=== PATIENT | male | born 1940 | race Caucasian/White ===

== ENCOUNTER 2018-05-02 11:11 | Outpatient (CLI) | payer MEDICARE, OTHER ==
[2018-05-02 12:46] LABS: Hemoglobin 15.5 g/dL (14.0-18.0); Mean Corpuscular HGB CONC 33.1 g/dL (32.0-36.0); Mean Corpuscular Hemoglobin 32.1 pg (27.0-31.0); Mean Corpuscular Volume 97.2 fL (78.0-98.0); Mean Platelet Volume 8.4 fL (7.4-10.4); Platelet Count 202 thou/uL (130-400); RBC Distribution Width 11.3 % (11.5-14.5); Red Blood Cell (RBC) Count 4.84 mill/uL (4.70-6.10); White Blood Cell (WBC) Count 6.2 thou/uL (4.8-10.8)
[2018-05-02 13:06] LABS: Anion Gap 10 mmol/L (10-20); BUN (Urea Nitrogen) 19 mg/dL (8.4-25.7); Calc. Creatinine Clearance 0 mL/min (70-130); Calcium 9.4 mg/dL (7.8-10.44); Carbon Dioxide 29 mmol/L (23-31); Chloride 102 mmol/L (98-107); Estimated GFR-MDRD 69; Glucose 160 mg/dL (83-110); Potassium 4.1 mmol/L (3.5-5.1); Sodium 137 mmol/L (136-145)
--- NOTE | 2018-05-03 10:12 | EKG ---
Test Reason : Blood Pressure : / mmHG Vent. Rate : 059 BPM Atrial Rate : 059 BPM P-R Int : 212 ms QRS Dur : 094 ms QT Int : 410 ms P-R-T Axes : 045 025 103 degrees QTc Int : 405 ms Sinus bradycardia with 1st degree A-V block Nonspecific T wave abnormality Abnormal ECG Confirmed by MARCE CATHERINE ([id number]) on 05/03/2018 10:12:29 AM Referred By: BRADEN Confirmed By:MARCE CATHERINE
== END 2018-05-02 11:12 | disposition home or self-care (01) ==
LOC: LABBT 11:11
PROVIDERS: ATTEND Orthopaedic Surgery
DX: Z01.818 Encounter for other preprocedural examination (principal); M65.341 Trigger finger, right ring finger
CPT/HCPCS: 80048; 85027; 93005; 93010

== ENCOUNTER → 2018-05-04 | Day surgery (SDC) | payer MEDICARE, OTHER ==
[2018-05-02 11:32] VITALS: BMI 28.2
[~2018-05-04] MED LIST: CEFAZOLIN 2 GM/50 ML BAG ONE; Fentanyl 100 MCG/2 ML VIAL ONE; Lidocaine 1% (PF) 30 ML VIAL ONE; Lidocaine 1% w/Epinephrine 1:200K 30 ML VIAL ONE; PROPOFOL 200 MG/20 ML VIAL ONE
--- NOTE | 2018-05-04 10:56 | OP ---
DATE OF PROCEDURE: 05/04/2018 PREOPERATIVE DIAGNOSIS: Right ring finger trigger finger. POSTOPERATIVE DIAGNOSIS: Right ring finger trigger finger. PROCEDURE PERFORMED: Right open trigger finger release. STAFF: Noel Gomez M.D. ANESTHESIA: Calin Phipps. Patient received TIVA with 10 mL of 1% lidocaine with epinephrine. ESTIMATED BLOOD LOSS: 10 mL. TOURNIQUET TIME: 8 minutes, 250 mmHg. ANTIBIOTICS: Ancef 2 grams. COMPLICATIONS: None. HISTORY OF PRESENT ILLNESS: Mr. Munoz is a 77-year-old male who presented to me with catching in hi s ring finger, especially bad at night. Pain 2/10. Previous injection gave him a month of relief. The patient desired to have his right ring finger released. I discussed with him the risks and benef its of surgery to include pain, scar, bleeding, infection, damage to vital structures, failure of rel ease, continued pain despite surgical intervention, loss of life or limb. The patient understood the risks and benefits and elected to proceed. PROCEDURE IN DETAIL: Timeout was performed designating the patient's right upper extremity as the op erative site based on site, consents and markings. After timeout, the patient's right hand was prepp ed and draped in sterile fashion. He received TIVA injected proximally and along the patient's ray t o help with his digital nerves, as well as the arch. I made an incision in the flexure crease, came down the A1 kavin. I used a knife to dissect and cut it and scissors to release it distally. I pul led the tendons up, I felt a little pop at completion of the release, still pulled the tendons up thr ough the wound. I felt like I had a complete release proximally and distally of the kavin. We then washed. We closed with mattress stitches of 3-0 nylon, injected the remnant with 4 mL of 1% lidocai ne with epinephrine for a total of 10 mL in the hand. I then placed a soft tissue dressing. The patient will begin range of motion, put a Band-Aid over the incision. He will follow up me in [facility] in about 10-12 days.
== END ==
LOC: SDC 06:49
PROVIDERS: ATTEND Orthopaedic Surgery
PROC: 0LN70ZZ Release Right Hand Tendon, Open Approach (ICD-10-PCS; principal; 2018-05-04)
DX: M65.341 Trigger finger, right ring finger (principal); I10 Essential (primary) hypertension; E78.00 Pure hypercholesterolemia, unspecified; I25.10 Atherosclerotic heart disease of native coronary artery without angina pectoris; Z86.12 Personal history of poliomyelitis; Z79.82 Long term (current) use of aspirin; Z79.899 Other long term (current) drug therapy; Z95.1 Presence of aortocoronary bypass graft; Z96.652 Presence of left artificial knee joint
CPT/HCPCS: J2001; J2704; J3010

== ENCOUNTER 2021-04-07 21:21 | Emergency (ER) | payer MEDICARE ==
[2021-04-07 22:09] LABS: #Basophils 0.1 thou/uL (0.0-0.2); #Eosinphils 0.2 thou/uL (0.0-0.7); #Lymphocytes 2.1 thou/uL (1.20-3.40); #Monocytes 0.7 thou/uL (0.11-0.59); #Neutrophils 7.4 thou/uL (1.40-6.50); %Basophils 0.6 % (0.0-1.0); %Eosinophils 1.9 % (0.0-10.0); %Lymphocytes 19.8 % (21.0-51.0); %Monocytes 6.9 % (0.0-10.0); %Neutrophils 70.9 % (42.0-75.0); Hemoglobin 16.5 g/dL (14.0-18.0); Mean Corpuscular HGB CONC 33.4 g/dL (32.0-36.0); Mean Corpuscular Hemoglobin 33.2 pg (27.0-31.0); Mean Corpuscular Volume 99.4 fL (78.0-98.0); Mean Platelet Volume 8.6 fL (7.4-10.4); Platelet Count 228 thou/uL (130-400); RBC Distribution Width 11.6 % (11.5-14.5); Red Blood Cell (RBC) Count 4.97 mill/uL (4.70-6.10); White Blood Cell (WBC) Count 10.5 thou/uL (4.8-10.8)
[2021-04-07 22:30] LABS: ALT (SGPT) 22 U/L (8-55); AST (SGOT) 18 U/L (5-34); Albumin 4.5 g/dL (3.4-4.8); Alkaline Phosphatase 83 U/L (40-110); Anion Gap 12 mmol/L (10-20); BUN (Urea Nitrogen) 13 mg/dL (8.4-25.7); Bilirubin, Total 0.6 mg/dL (0.2-1.2); CK (CPK) 61 U/L (30-200); Calc. Creatinine Clearance 0 mL/min (70-130); Calcium 10.1 mg/dL (7.8-10.44); Carbon Dioxide 31 mmol/L (23-31); Chloride 99 mmol/L (98-107); Globulin 3.5 g/dL (2.4-3.5); Glucose 155 mg/dL (83-110); Potassium 4.2 mmol/L (3.5-5.1); Sodium 138 mmol/L (136-145)
== END 2021-04-07 23:14 | disposition home or self-care (01) ==
LOC: ERS 21:21
DX: K21.9 Gastro-esophageal reflux disease without esophagitis (principal); I10 Essential (primary) hypertension; E11.9 Type 2 diabetes mellitus without complications; E78.5 Hyperlipidemia, unspecified; E78.00 Pure hypercholesterolemia, unspecified; Z79.82 Long term (current) use of aspirin; Z79.899 Other long term (current) drug therapy
CPT/HCPCS: 71045; 80053; 82550; 84484; 85025; 93005

== ENCOUNTER 2021-07-18 13:56 | Inpatient (IN) | payer OTHER, MEDICARE ==
[2021-07-18] MEDS ORDERED: Metoclopramide HCl 10 MG/2 ML VIAL ONE (14:22)
[2021-07-18] MEDS ORDERED: Ondansetron PF 4 MG/2 ML Vial IVP PRN ×2 (15:10→16:07)
[2021-07-18] MEDS ORDERED: Ondansetron ODT 4 MG TAB SL PRN (15:10)
[2021-07-18 15:17] LABS: #Eosinphils 0.1 thou/uL (0.0-0.7); #Lymphocytes 2.4 thou/uL (1.20-3.40); #Monocytes 0.7 thou/uL (0.11-0.59); #Neutrophils 9.3 thou/uL (1.40-6.50); %Basophils 0.3 % (0.0-1.0); %Eosinophils 0.9 % (0.0-10.0); %Lymphocytes 19.2 % (21.0-51.0); %Monocytes 5.7 % (0.0-10.0); %Neutrophils 73.9 % (42.0-75.0); Hemoglobin 14.9 g/dL (14.0-18.0); Mean Corpuscular HGB CONC 34.5 g/dL (32.0-36.0); Mean Corpuscular Hemoglobin 34.4 pg (27.0-31.0); Mean Corpuscular Volume 99.8 fL (78.0-98.0); Mean Platelet Volume 8.1 fL (7.4-10.4); Platelet Count 226 thou/uL (130-400); RBC Distribution Width 11.1 % (11.5-14.5); Red Blood Cell (RBC) Count 4.33 mill/uL (4.70-6.10); White Blood Cell (WBC) Count 12.6 thou/uL (4.8-10.8)
[2021-07-18 15:32] LABS: PTT 28.5 sec (22.9-36.1); Prothrombin Time 13.5 sec (12.0-14.7)
[2021-07-18 15:38] LABS: ALT (SGPT) 22 U/L (8-55); AST (SGOT) 18 U/L (5-34); Alkaline Phosphatase 74 U/L (40-110); Anion Gap 16 mmol/L (10-20); BUN (Urea Nitrogen) 16 mg/dL (8.4-25.7); Bilirubin, Total 0.7 mg/dL (0.2-1.2); Calc. Creatinine Clearance 0 mL/min (70-130); Calcium 9.2 mg/dL (7.8-10.44); Carbon Dioxide 24 mmol/L (23-31); Chloride 102 mmol/L (98-107); Globulin 3.3 g/dL (2.4-3.5); Glucose 218 mg/dL (83-110); Potassium 3.2 mmol/L (3.5-5.1); Protein, Total 7.3 g/dL (5.8-8.1); Sodium 139 mmol/L (136-145)
[2021-07-18] MEDS ORDERED: Ketorolac Tromethamine 30 MG/ML VIAL ONE (15:39)
[2021-07-18] MEDS ORDERED: Morphine 4 MG/ML VIAL ONE (15:39)
[2021-07-18] MEDS ORDERED: Dextrose 50% Abboject 50 ML SYRINGE SLOW IVP PRN (16:07)
[2021-07-18] MEDS ORDERED: Morphine 4 MG/ML VIAL SLOW IVP PRN ×2 (16:07→17:31)
[2021-07-18] MEDS ORDERED: Dextrose 5% in Water 1,000 ML IV PRN (16:07)
[2021-07-18] MEDS ORDERED: traMADol HCl 50 MG TAB PO PRN ×2 (16:13→19:45)
[2021-07-18] MEDS ORDERED: Acetaminophen 500 MG TAB PO SCH (16:15)
[2021-07-18 16:32] LABS: Magnesium 1.8 mg/dL (1.6-2.6); Phosphorus 2.4 mg/dL (2.3-4.7)
[2021-07-18 16:38] LABS: SARS-CoV-2 NAA Rapid Test Not Detected (NotDetected)
[2021-07-18] MEDS ORDERED: Magnesium Sulfate 2 GM in Sodium Chloride 0.9% 100 ML IVPB SCH (17:00)
[2021-07-18] MEDS ORDERED: Potassium Phosphate 30 MMOL, Magnesium Sulfate 2 GM in Sodium Chloride 0.9% 250 ML IVPB SCH (18:00)
[2021-07-18 18:18] VITALS: BMI 27.3
[2021-07-18] MEDS: Senokot S 8.6-50 MG TAB PO SCH (21:43)
[2021-07-18] MEDS: Famotidine 20 MG TAB PO SCH (21:43)
[2021-07-18] MEDS: Ketorolac Tromethamine 30 MG/ML VIAL IVP SCH (21:44)
[2021-07-18] MEDS: traMADol HCl 50 MG TAB PO SCH (21:44)
[2021-07-18] MEDS: Insulin Regular 300 UNITS/3 ML VIAL SC PRN (22:09)
[2021-07-18] MEDS ORDERED: Sodium Chloride 0.9% 1,000 ML IV SCH (23:00)
[2021-07-18] MEDS: Cyclobenzaprine 10 MG TAB PO PRN (23:18)
[2021-07-18] MEDS: Acetaminophen 500 MG TAB PO SCH (23:19)
[2021-07-18] MEDS: Morphine 4 MG/ML VIAL SLOW IVP PRN (23:20)
[2021-07-19] MEDS: hydrALAZINE 20 MG/ML VIAL SLOW IVP PRN ×2 (00:38→03:27)
[2021-07-19] MEDS ORDERED: ceFAZolin 2 GM/Dextrose 50 ML 2 GM in Premix Bag 1 BAG IVPB SCH (03:00)
[2021-07-19] MEDS: Morphine 4 MG/ML VIAL SLOW IVP PRN (03:19)
[2021-07-19] MEDS: Acetaminophen 500 MG TAB PO SCH ×3 (05:42→18:28)
[2021-07-19] MEDS: traMADol HCl 50 MG TAB PO SCH ×4 (05:43→21:03)
[2021-07-19] MEDS: Ketorolac Tromethamine 30 MG/ML VIAL IVP SCH ×4 (05:45→21:04)
[2021-07-19 07:25] LABS: #Eosinphils 0.1 thou/uL (0.0-0.7); #Lymphocytes 1.1 thou/uL (1.20-3.40); #Neutrophils 9.3 thou/uL (1.40-6.50); %Basophils 0.1 % (0.0-1.0); %Eosinophils 0.6 % (0.0-10.0); %Lymphocytes 9.8 % (21.0-51.0); %Monocytes 8.9 % (0.0-10.0); %Neutrophils 80.6 % (42.0-75.0); Hemoglobin 15.2 g/dL (14.0-18.0); Mean Corpuscular HGB CONC 34.1 g/dL (32.0-36.0); Mean Corpuscular Hemoglobin 33.6 pg (27.0-31.0); Mean Corpuscular Volume 98.5 fL (78.0-98.0); Mean Platelet Volume 8.4 fL (7.4-10.4); Platelet Count 201 thou/uL (130-400); RBC Distribution Width 11.2 % (11.5-14.5); Red Blood Cell (RBC) Count 4.54 mill/uL (4.70-6.10); White Blood Cell (WBC) Count 11.6 thou/uL (4.8-10.8)
[2021-07-19 07:40] LABS: Anion Gap 17 mmol/L (10-20); BUN (Urea Nitrogen) 15 mg/dL (8.4-25.7); Calc. Creatinine Clearance 103 mL/min (70-130); Calcium 8.9 mg/dL (7.8-10.44); Carbon Dioxide 23 mmol/L (23-31); Chloride 101 mmol/L (98-107); Glucose 176 mg/dL (83-110); Magnesium 2.2 mg/dL (1.6-2.6); Potassium 3.8 mmol/L (3.5-5.1); Sodium 137 mmol/L (136-145)
[2021-07-19 07:41] LABS: Phosphorus 3.2 mg/dL (2.3-4.7)
[2021-07-19] MEDS: Carvedilol 3.125 MG TAB PO SCH (09:00)
[2021-07-19] MEDS: Senokot S 8.6-50 MG TAB PO SCH ×2 (10:03→21:04)
[2021-07-19] MEDS: Polyethylene Glycol 3350 17 GM Packet PO SCH (10:03)
[2021-07-19] MEDS: Famotidine 20 MG TAB PO SCH ×2 (10:03→21:04)
[2021-07-19] MEDS ORDERED: Neomycin-Polymyxin 1 ML AMP ONE (10:27)
[2021-07-19] MEDS ORDERED: Dexmedetomidine 200 MCG/2 ML VIAL ONE (10:28)
[2021-07-19] MEDS ORDERED: Fentanyl 100 MCG/2 ML VIAL ONE (10:28)
[2021-07-19] MEDS ORDERED: Ondansetron PF 4 MG/2 ML Vial ONE (11:00)
[2021-07-19] MEDS ORDERED: ePHEDrine 50 MG/ML VIAL ONE (11:00)
[2021-07-19] MEDS ORDERED: Lidocaine 1% PF 5 ML VIAL ONE (11:00)
[2021-07-19] MEDS ORDERED: Rocuronium Bromide 10 MG/ML (10ML VIAL) ONE (11:00)
[2021-07-19] MEDS ORDERED: PROPOFOL 200 MG/20 ML VIAL ONE (11:00)
[2021-07-19] MEDS ORDERED: Glycopyrrolate 0.2 MG/ML 5 ML SYRINGE ONE (11:00)
[2021-07-19] MEDS ORDERED: Dexamethasone 20 MG/5 ML VIAL ONE (11:00)
[2021-07-19] MEDS ORDERED: Tranexamic Acid 1,000 MG/10 ML VIAL ONE (11:22)
[2021-07-19] MEDS ORDERED: Promethazine HCl 25 MG/ML VIAL IM PRN (12:13)
[2021-07-19] MEDS ORDERED: Ondansetron HCl/PF 4 MG/2 ML Vial IVP PRN (12:13)
[2021-07-19] MEDS ORDERED: Promethazine HCl 25 MG/ML VIAL IVPB PRN (12:13)
[2021-07-19] MEDS ORDERED: Potassium Phosphate 15 MMOL in Sodium Chloride 0.9% 250 ML 250 ML IVPB SCH (13:15)
[2021-07-19] MEDS: Amlodipine 5 mg/Benazepril 20 mg CAP PO SCH ×2 (14:34→21:05)
[2021-07-19] MEDS: Insulin Regular 300 UNITS/3 ML VIAL SC PRN ×2 (15:58→23:15)
[2021-07-19] MEDS ORDERED: Ketorolac Tromethamine 30 MG/ML VIAL IVP SCH (18:00)
[2021-07-19] MEDS: ceFAZolin 2 GM/Dextrose 50 ML 2 GM in Premix Bag 1 BAG IVPB SCH (18:28)
[2021-07-19] MEDS: Aspirin 81 mg Enteric Coated Tablet PO SCH (21:03)
[2021-07-20] MEDS: Acetaminophen 500 MG TAB PO SCH ×4 (00:55→17:40)
[2021-07-20] MEDS: ceFAZolin 2 GM/Dextrose 50 ML 2 GM in Premix Bag 1 BAG IVPB SCH (03:21)
[2021-07-20] MEDS: traMADol HCl 50 MG TAB PO SCH ×4 (03:22→21:21)
[2021-07-20] MEDS: Ketorolac Tromethamine 30 MG/ML VIAL IVP SCH ×4 (03:23→21:19)
[2021-07-20] MEDS: Insulin Regular 300 UNITS/3 ML VIAL SC PRN ×2 (06:01→12:24)
[2021-07-20 06:29] LABS: #Basophils 0.1 thou/uL (0.0-0.2); #Lymphocytes 0.9 thou/uL (1.20-3.40); #Neutrophils 9.5 thou/uL (1.40-6.50); %Basophils 0.8 % (0.0-1.0); %Eosinophils 0.3 % (0.0-10.0); %Lymphocytes 7.8 % (21.0-51.0); %Monocytes 8.9 % (0.0-10.0); %Neutrophils 82.2 % (42.0-75.0); Hemoglobin 13.5 g/dL (14.0-18.0); Mean Corpuscular HGB CONC 33.2 g/dL (32.0-36.0); Mean Corpuscular Hemoglobin 33.6 pg (27.0-31.0); Mean Platelet Volume 8.1 fL (7.4-10.4); Platelet Count 183 thou/uL (130-400); RBC Distribution Width 11.2 % (11.5-14.5); Red Blood Cell (RBC) Count 4.01 mill/uL (4.70-6.10); White Blood Cell (WBC) Count 11.5 thou/uL (4.8-10.8)
[2021-07-20 06:54] LABS: Anion Gap 13 mmol/L (10-20); BUN (Urea Nitrogen) 22 mg/dL (8.4-25.7); Calc. Creatinine Clearance 86 mL/min (70-130); Calcium 8.7 mg/dL (7.8-10.44); Carbon Dioxide 25 mmol/L (23-31); Chloride 100 mmol/L (98-107); Glucose 153 mg/dL (83-110); Phosphorus 3.3 mg/dL (2.3-4.7); Potassium 4.1 mmol/L (3.5-5.1); Sodium 134 mmol/L (136-145)
[2021-07-20] MEDS: Senokot S 8.6-50 MG TAB PO SCH ×2 (08:52→21:19)
[2021-07-20] MEDS: Amlodipine 5 mg/Benazepril 20 mg CAP PO SCH ×2 (08:53→21:19)
[2021-07-20] MEDS: Polyethylene Glycol 3350 17 GM Packet PO SCH (08:53)
[2021-07-20] MEDS: Aspirin 81 mg Enteric Coated Tablet PO SCH ×2 (08:53→21:19)
[2021-07-20] MEDS: Famotidine 20 MG TAB PO SCH ×2 (08:54→21:19)
[2021-07-20] MEDS: Carvedilol 3.125 MG TAB PO SCH (08:54)
[2021-07-21] MEDS: Acetaminophen 500 MG TAB PO SCH ×5 (01:13→23:01)
[2021-07-21] MEDS: Ketorolac Tromethamine 30 MG/ML VIAL IVP SCH ×4 (04:18→23:00)
[2021-07-21] MEDS: traMADol HCl 50 MG TAB PO SCH ×4 (04:18→23:00)
[2021-07-21 06:41] LABS: #Eosinphils 0.3 thou/uL (0.0-0.7); #Lymphocytes 1.4 thou/uL (1.20-3.40); #Monocytes 0.9 thou/uL (0.11-0.59); #Neutrophils 6.2 thou/uL (1.40-6.50); %Basophils 0.2 % (0.0-1.0); %Eosinophils 3.4 % (0.0-10.0); %Lymphocytes 15.7 % (21.0-51.0); %Neutrophils 70.7 % (42.0-75.0); Hemoglobin 14.2 g/dL (14.0-18.0); Mean Corpuscular Hemoglobin 33.2 pg (27.0-31.0); Mean Platelet Volume 8.6 fL (7.4-10.4); Platelet Count 171 thou/uL (130-400); RBC Distribution Width 11.2 % (11.5-14.5); Red Blood Cell (RBC) Count 4.28 mill/uL (4.70-6.10); White Blood Cell (WBC) Count 8.8 thou/uL (4.8-10.8)
[2021-07-21] MEDS: Carvedilol 3.125 MG TAB PO SCH (09:37)
[2021-07-21] MEDS: Aspirin 81 mg Enteric Coated Tablet PO SCH ×2 (09:37→20:28)
[2021-07-21] MEDS: Amlodipine 5 mg/Benazepril 20 mg CAP PO SCH ×2 (09:37→20:28)
[2021-07-21] MEDS: Senokot S 8.6-50 MG TAB PO SCH ×2 (09:37→20:29)
[2021-07-21] MEDS: Polyethylene Glycol 3350 17 GM Packet PO SCH (09:38)
[2021-07-21] MEDS: Famotidine 20 MG TAB PO SCH ×2 (09:38→20:29)
[2021-07-21] MEDS ORDERED: Carvedilol 3.125 MG TAB PO SCH (17:00)
[2021-07-22] MEDS: Cyclobenzaprine 10 MG TAB PO PRN (02:42)
[2021-07-22] MEDS: Ketorolac Tromethamine 30 MG/ML VIAL IVP SCH ×4 (03:11→21:31)
[2021-07-22] MEDS: traMADol HCl 50 MG TAB PO SCH ×4 (03:11→23:24)
[2021-07-22 06:06] LABS: Hemoglobin 14.2 g/dL (14.0-18.0); Mean Corpuscular HGB CONC 33.4 g/dL (32.0-36.0); Mean Corpuscular Hemoglobin 33.6 pg (27.0-31.0); Mean Platelet Volume 8.2 fL (7.4-10.4); Platelet Count 159 thou/uL (130-400); RBC Distribution Width 11.2 % (11.5-14.5); Red Blood Cell (RBC) Count 4.23 mill/uL (4.70-6.10)
[2021-07-22] MEDS: Acetaminophen 500 MG TAB PO SCH ×3 (06:13→17:36)
[2021-07-22] MEDS: Insulin Regular 300 UNITS/3 ML VIAL SC PRN ×2 (06:15→16:32)
[2021-07-22] MEDS: Polyethylene Glycol 3350 17 GM Packet PO SCH (08:00)
[2021-07-22] MEDS: Carvedilol 3.125 MG TAB PO SCH (08:00)
[2021-07-22] MEDS: Amlodipine 5 mg/Benazepril 20 mg CAP PO SCH ×2 (08:00→21:29)
[2021-07-22] MEDS: Aspirin 81 mg Enteric Coated Tablet PO SCH ×2 (08:00→21:29)
[2021-07-22] MEDS: Senokot S 8.6-50 MG TAB PO SCH ×2 (08:00→21:30)
[2021-07-22] MEDS: Famotidine 20 MG TAB PO SCH ×2 (08:00→21:29)
[2021-07-22] MEDS: Melatonin 3 MG TAB PO SCH (21:30)
[2021-07-23] MEDS: Acetaminophen 500 MG TAB PO SCH ×5 (00:27→23:32)
[2021-07-23] MEDS: Ketorolac Tromethamine 30 MG/ML VIAL IVP SCH ×4 (03:46→21:09)
[2021-07-23] MEDS: traMADol HCl 50 MG TAB PO SCH ×5 (03:50→21:09)
[2021-07-23] MEDS: Insulin Regular 300 UNITS/3 ML VIAL SC PRN ×2 (06:33→18:41)
[2021-07-23] MEDS: Polyethylene Glycol 3350 17 GM Packet PO SCH (08:05)
[2021-07-23] MEDS: Famotidine 20 MG TAB PO SCH ×2 (08:05→21:08)
[2021-07-23] MEDS: Aspirin 81 mg Enteric Coated Tablet PO SCH ×2 (08:05→21:08)
[2021-07-23] MEDS: Amlodipine 5 mg/Benazepril 20 mg CAP PO SCH ×2 (08:05→21:08)
[2021-07-23] MEDS: Carvedilol 3.125 MG TAB PO SCH (08:05)
[2021-07-23] MEDS: Senokot S 8.6-50 MG TAB PO SCH ×2 (08:05→21:09)
[2021-07-23] MEDS ORDERED: Ibuprofen 200 MG TAB PO PRN (10:06)
[2021-07-23] MEDS: Melatonin 3 MG TAB PO SCH (21:08)
[2021-07-24] MEDS: traMADol HCl 50 MG TAB PO SCH ×2 (05:24→09:37)
[2021-07-24] MEDS: Acetaminophen 500 MG TAB PO SCH ×2 (05:33→11:44)
[2021-07-24] MEDS: Famotidine 20 MG TAB PO SCH (09:24)
[2021-07-24] MEDS: Carvedilol 3.125 MG TAB PO SCH (09:24)
[2021-07-24] MEDS: Aspirin 81 mg Enteric Coated Tablet PO SCH (09:24)
[2021-07-24] MEDS: Senokot S 8.6-50 MG TAB PO SCH (09:25)
[2021-07-24] MEDS: Amlodipine 5 mg/Benazepril 20 mg CAP PO SCH (09:25)
[2021-07-24] MEDS: Polyethylene Glycol 3350 17 GM Packet PO SCH (09:25)
[2021-07-24] MEDS: Insulin Regular 300 UNITS/3 ML VIAL SC PRN (11:45)
[2021-07-24 11:47] VITALS: BP 148/77; TEMP 97.8
== END 2021-07-24 16:10 | DRG 522 ==
LOC: ERS 13:56 → SURG B 15:18
PROVIDERS: ADMIT Surgery; ATTEND Surgery
PROC: 0SRS01Z Replacement of Left Hip Joint, Femoral Surface with Metal Synthetic Substitute, Open Approach (ICD-10-PCS; principal; 2021-07-19)
DX: S72.002A Fracture of unspecified part of neck of left femur, initial encounter for closed fracture (principal); N17.9 Acute kidney failure, unspecified; Z20.822 Contact with and (suspected) exposure to COVID-19; E87.6 Hypokalemia; I25.10 Atherosclerotic heart disease of native coronary artery without angina pectoris; I10 Essential (primary) hypertension; E11.9 Type 2 diabetes mellitus without complications; E78.5 Hyperlipidemia, unspecified; N40.0 Benign prostatic hyperplasia without lower urinary tract symptoms; A80.9 Acute poliomyelitis, unspecified; Z95.1 Presence of aortocoronary bypass graft; Z96.652 Presence of left artificial knee joint; Z90.49 Acquired absence of other specified parts of digestive tract; E78.00 Pure hypercholesterolemia, unspecified; W01.0XXA Fall on same level from slipping, tripping and stumbling without subsequent striking against object, initial encounter; Y92.002 Bathroom of unspecified non-institutional (private) residence as the place of occurrence of the external cause
CPT/HCPCS: 36415; 36416; 71045; 72170; 80048; 80053; 83735; 84100; 84484; 85025; 85027; 85610; 85730; 86850; 86900; 86901; 93005; 96365; 96375; C1713; C1776; G0390; J0360; J0690; J1100; J1815; J1885; J2270; J2405; J2704; J2765; J3010; J3475; J3490; J7030; J7050; U0002

== ENCOUNTER 2022-03-19 13:46 | Emergency (ER) | payer MEDICARE, OTHER ==
[2022-03-19 14:09] LABS: #Eosinphils 0.3 thou/uL (0.0-0.7); #Lymphocytes 1.5 thou/uL (1.20-3.40); #Neutrophils 5.3 thou/uL (1.40-6.50); %Basophils 0.4 % (0.0-1.0); %Eosinophils 3.1 % (0.0-10.0); %Lymphocytes 18.8 % (21.0-51.0); %Monocytes 12.1 % (0.0-10.0); %Neutrophils 65.6 % (42.0-75.0); Hemoglobin 12.5 g/dL (14.0-18.0); Mean Corpuscular HGB CONC 33.3 g/dL (32.0-36.0); Mean Corpuscular Hemoglobin 33.9 pg (27.0-31.0); Mean Platelet Volume 8.5 fL (7.4-10.4); Platelet Count 204 thou/uL (130-400); RBC Distribution Width 11.1 % (11.5-14.5); Red Blood Cell (RBC) Count 3.67 mill/uL (4.70-6.10); White Blood Cell (WBC) Count 8.2 thou/uL (4.8-10.8)
[2022-03-19 14:41] LABS: ALT (SGPT) 15 U/L (8-55); AST (SGOT) 18 U/L (5-34); Albumin 3.8 g/dL (3.4-4.8); Alkaline Phosphatase 66 U/L (40-110); Anion Gap 15 mmol/L (10-20); BUN (Urea Nitrogen) 27 mg/dL (8.4-25.7); Bilirubin, Total 0.4 mg/dL (0.2-1.2); Calc. Creatinine Clearance 0 mL/min (70-130); Calcium 9.6 mg/dL (7.8-10.44); Carbon Dioxide 24 mmol/L (23-31); Chloride 101 mmol/L (98-107); Estimated GFR 69; Globulin 3.2 g/dL (2.4-3.5); Glucose 108 mg/dL (83-110); Sodium 136 mmol/L (136-145)
[2022-03-19 16:24] LABS: Bacteria/HPF 2+ HPF (None Seen); Bilirubin Negative (Negative); Blood, Urine 3+ (Negative); Clarity Extra Turbid (Clear); Glucose, Urine (Dipstick) Normal (Negative); Ketone, Urine Trace mg/dL (Negative); Leukocyte 500 Leu/uL (Negative); Nitrite Negative (Negative); Protein, Urine (Dipstick) 300 mg/dL (Neg-Trace); Squamous Epithelial None Seen HPF (0-3); Urobilinogen 3 mg/dL (Less than 2); WBC/HPF Greater than 50 HPF (0-3); pH, Urine 6.5 (5.0-9.0)
[2022-03-19 16:25] LABS: RBC/HPF 21-50 HPF (0-3)
[2022-03-19] MEDS ORDERED: cefTRIAXone\\ROCEPHIN 1 GM VIAL ONE ×2 (17:04→17:06)
[2022-03-19] MEDS ORDERED: Lidocaine 1% PF 5 ML VIAL ONE (17:06)
== END 2022-03-19 17:40 | disposition home or self-care (01) ==
LOC: ERS 13:46
DX: N30.00 Acute cystitis without hematuria (principal); I10 Essential (primary) hypertension; E11.9 Type 2 diabetes mellitus without complications; E78.00 Pure hypercholesterolemia, unspecified; A80.9 Acute poliomyelitis, unspecified; Z79.82 Long term (current) use of aspirin; Z79.899 Other long term (current) drug therapy
CPT/HCPCS: 36415; 80053; 81003; 81015; 85025; 87077; 87086; 87186; 96372; 99283; J0696

== ENCOUNTER 2023-04-03 11:47 | Emergency (ER) | payer MEDICARE, OTHER ==
[2023-04-03] MEDS ORDERED: Nitroglycerin 2% Ointment 1 INCH/1 GM Packet ONE (12:18)
[2023-04-03 12:57] LABS: #Monocytes 0.8 thou/uL (0.11-0.59); #Neutrophils 6.3 thou/uL (1.40-6.50); %Basophils 0.5 % (0.0-1.0); %Eosinophils 0.5 % (0.0-10.0); %Lymphocytes 13.9 % (21.0-51.0); %Neutrophils 75.6 % (42.0-75.0); Hematocrit 42.7 % (42.0-52.0); Hemoglobin 14.4 g/dL (14.0-18.0); Mean Corpuscular HGB CONC 33.7 g/dL (32.0-36.0); Mean Corpuscular Hemoglobin 32.2 pg (27.0-31.0); Mean Corpuscular Volume 95.5 fl (78.0-98.0); Platelet Count 203 10x3/uL (130-400); RBC Distribution Width 12.2 % (11.5-14.5); Red Blood Cell (RBC) Count 4.47 mill/uL (4.70-6.10); White Blood Cell (WBC) Count 8.4 10x3/uL (4.8-10.8)
[2023-04-03 13:15] LABS: ALT (SGPT) 17 U/L (8-55); AST (SGOT) 16 U/L (5-34); Albumin 3.6 g/dL (3.4-4.8); Alkaline Phosphatase 89 U/L (40-110); Anion Gap 18 mmol/L (10-20); BUN (Urea Nitrogen) 11 mg/dL (8.4-25.7); Bilirubin, Total 0.8 mg/dL (0.2-1.2); Calc. Creatinine Clearance 0 mL/min (70-130); Calcium 8.6 mg/dL (7.8-10.44); Carbon Dioxide 23 mmol/L (23-31); Chloride 97 mmol/L (98-107); Estimated GFR 80; Globulin 2.9 g/dL (2.4-3.5); Glucose 317 mg/dL (83-110); Lipase 13 U/L (8-78); Potassium 4.4 mmol/L (3.5-5.1); Protein, Total 6.5 g/dL (5.8-8.1); Sodium 134 mmol/L (136-145)
[2023-04-03 13:17] LABS: Troponin I Less than 0.010 ng/mL (< 0.028)
[2023-04-03 14:54] LABS: Troponin I Less than 0.010 ng/mL (< 0.028)
== END 2023-04-03 17:35 ==
LOC: ERS 11:47
DX: U07.1 COVID-19 (principal); E78.00 Pure hypercholesterolemia, unspecified; I10 Essential (primary) hypertension; Z79.899 Other long term (current) drug therapy; Z79.82 Long term (current) use of aspirin
CPT/HCPCS: 36415; 71045; 80053; 83690; 83880; 84484; 85025; 85379; 93005

== ENCOUNTER 2025-02-25 07:37 | Inpatient (IN) | payer MEDICARE, OTHER ==
[2025-02-25] MEDS ORDERED: VANCOMYCIN 2 GRAM/400 ML BAG ONE (08:26)
[2025-02-25] MEDS ORDERED: Cefepime 2 GM VIAL ONE (08:26)
[2025-02-25 08:47] LABS: Bacteria/HPF 4+ HPF (None Seen); CAUTI Indications for Culture Alt mental st,lethar; Glucose, Urine (Dipstick) Normal (Negative); Leukocyte 500 Leu/uL (Negative); Protein, Urine (Dipstick) 30 mg/dL (Neg-Trace); Specific Gravity, Urine 1.016 (1.002-1.036); WBC/HPF Greater than 50 HPF (0-3)
[2025-02-25 08:50] LABS: Urine Culture Reflex Yes Yes
[2025-02-25 09:22] LABS: Hematocrit 38.8 % (42.0-52.0); Hemoglobin 12.3 g/dL (14.0-18.0); Mean Corpuscular Hemoglobin 32.2 pg (27.0-31.0); Mean Corpuscular Volume 101.6 fL (78.0-98.0); Platelet Count 269 10x3/uL (130-400); Red Blood Cell (RBC) Count 3.82 mill/uL (4.70-6.10); White Blood Cell (WBC) Count 15.50 10x3/uL (4.8-10.8)
[2025-02-25 09:23] LABS: Actual Bicarbonate (HCO3v) 19.6 mEq/L (22-28); Analyzer IN Cardio ER; Base Excess -6.3 mEq/L (-2.0 to +3.0); Calcium, Ionized (venous) 1.06 mmol/L (1.16-1.32); Chloride (VBG) 108 mmol/L (98-106); Hematocrit-VBG 35 % (42.0-52.0); Hemoglobin (Hb) 11.8 g/dL (12.6-17.4); Potassium (VBG) 3.66 mmol/L (3.70-5.30); Sodium 150 mmol/L (133-146)
[2025-02-25 09:47] LABS: ALT (SGPT) 23 U/L (Less than 45); AST (SGOT) 32 U/L (11-34); Albumin 2.9 g/dL (3.1-4.5); Alkaline Phosphatase 121 U/L (40-110); Anion Gap 27 mmol/L (10-20); BUN (Urea Nitrogen) 46 mg/dL (8.4-25.7); Bilirubin, Total 0.3 mg/dL (0.3-1.2); Calc. Creatinine Clearance 0 mL/min (70-130); Calcium 9.0 mg/dL (7.8-10.44); Carbon Dioxide 19 mmol/L (23-31); Chloride 107 mmol/L (98-107); Globulin 3.8 g/dL (2.4-3.5); Glucose 139 mg/dL (83-110); Potassium 3.8 mmol/L (3.5-5.1); Sodium 149 mmol/L (136-145)
[2025-02-25] MEDS ORDERED: Dexamethasone 10 MG/ML VIAL ONE (11:04)
[2025-02-25] MEDS ORDERED: Senokot S 8.6-50 MG TAB PO PRN (11:12)
[2025-02-25] MEDS ORDERED: Ondansetron PF 4 MG/2 ML Vial IVP PRN (11:12)
[2025-02-25] MEDS ORDERED: Bisacodyl 10 MG SUPP PR PRN (11:12)
[2025-02-25] MEDS ORDERED: Acetaminophen 325 MG TAB PO PRN (11:12)
[2025-02-25] MEDS ORDERED: Albuterol 200 PUFF (6.7GM INHALER) INH PRN (11:12)
[2025-02-25] MEDS ORDERED: Benzonatate 100 MG CAP PO PRN (11:12)
[2025-02-25] MEDS ORDERED: Dextrose 50% Abboject 50 ML SYRINGE SLOW IVP PRN (11:19)
[2025-02-25] MEDS ORDERED: Glucagon 1 MG/ML KIT IM PRN (11:19)
[2025-02-25 11:29] LABS: Burr Cells SLIGHT = 2-5 cells HPF (0-1); Dohle Bodies MODERATE; Macrocytosis SLIGHT = 6-15 cells HPF (0-5); Platelet Adequacy Comment Platelets Normal; Polychromasia SLIGHT = 2-3 cells HPF (0-2); Reflex for Review?? YES; Smudge Cells 2.0 %; Spherocytes SLIGHT = 1-5 cells HPF (None Seen); Toxic Granulation SLIGHT
[2025-02-25] MEDS ORDERED: SUCCINYLCHOLINE/SOD CL,ISO/PF 200 MG/10 ML SYRINGE FS ONE (14:25)
[2025-02-25] MEDS ORDERED: Pharmacy to Dose: VANC IVPB PRN (14:46)
[2025-02-25] MEDS ORDERED: Electrolyte Replacement Protocol 1 EACH FS PRN (14:57)
[2025-02-25] MEDS ORDERED: Propofol BOLUS 1,000 MG/100 ML VIAL IV PRN (15:15)
[2025-02-25] MEDS ORDERED: Fentanyl BOLUS 100 ML IVPB PRN (15:15)
[2025-02-25] MEDS ORDERED: DISCONTINUE PREVIOUS NARCOTIC PAIN MEDICATIONS AND BENZODIAZEPINES FS SCH (15:15)
[2025-02-25] MEDS: NOREPINEPHRINE 8 MG/250 ML-D5W 250 ML IVPB SCH (15:35)
[2025-02-25] MEDS: Ventilator Sedation Protocol 1 EACH FS ONE (15:49)
[2025-02-25] MEDS: NOREPINEPHRINE 8 MG/250 ML-D5W 250 ML ONE (15:50)
[2025-02-25] MEDS: cefTRIAXone\\ROCEPHIN 1 GM in Sodium Chloride 0.9% 100 ML IVPB SCH (16:11)
[2025-02-25 16:24] LABS: Base Excess (BEa) -10.4 mEq/L (-2.0 to +3.0); CO2 Tension 28.8 mmHg (35.0-45.0); Calcium, Ionized (arterial) 1.15 mmol/L (1.12-1.30); Hematocrit-ABG 32 % (42.0-52.0); Hemoglobin (Hb) 10.8 g/dL (14.0-18.0); O2 Tension (PaO2), arterial 80.3 mmHg (> 60.0); Potassium - ABG Lab 3.57 mmol/L (3.70-5.30); pH, Arterial 7.318 (7.35-7.45)
[2025-02-25 16:28] LABS: ALV-art Gradient 168.900 mmHg (0-20); Actual Bicarbonate (HCO3a) 14.4 mEq/L (22-28); Puncture Site Right Radial artery
[2025-02-25] MEDS: Diltiazem HCl/D5W 125 MG in Premix 1 BAG IVPB SCH (16:41)
[2025-02-25] MEDS: Sodium Bicarb 50 MEQ/50 ML Abboject 8.4% SYRINGE IVP SCH (16:41)
[2025-02-25] MEDS ORDERED: Vancomycin (BATCH) 1.75 GM Premix IVPB SCH (16:45)
[2025-02-25 17:33] LABS: Magnesium 1.5 mg/dL (1.6-2.6)
[2025-02-25] MEDS: Magnesium 2 GM/50 ML(in water) 2 GM in Premix 1 BAG IVPB SCH (20:53)
[2025-02-26 00:17] LABS: Anion Gap 25 mmol/L (10-20); BUN (Urea Nitrogen) 49 mg/dL (8.4-25.7); Calc. Creatinine Clearance 45 mL/min (70-130); Calcium 8.2 mg/dL (7.8-10.44); Carbon Dioxide 16 mmol/L (23-31); Chloride 109 mmol/L (98-107); Glucose 173 mg/dL (83-110); Potassium 3.7 mmol/L (3.5-5.1); Sodium 146 mmol/L (136-145)
[2025-02-26 06:10] LABS: #Basophils 0.03 10x3/uL (0.0-0.2); #Eosinophils Less than 0.03 10x3/uL (0.0-0.7); #Monocytes 0.53 10x3/uL (0.11-0.59); #Neutrophils 9.69 10x3/uL (1.40-6.50); %Basophils 0.3 % (0.0-1.0); %Eosinophils 0.0 % (0.0-10.0); %Lymphocytes 8.8 % (21.0-51.0); %Monocytes 4.6 % (0.0-10.0); %Neutrophils 84.6 % (42.0-75.0); Hematocrit 33.0 % (42.0-52.0); Hemoglobin 10.3 g/dL (14.0-18.0); Mean Corpuscular Hemoglobin 32.1 pg (27.0-31.0); Mean Corpuscular Volume 102.8 fL (78.0-98.0); Platelet Count 191 10x3/uL (130-400); Red Blood Cell (RBC) Count 3.21 mill/uL (4.70-6.10); White Blood Cell (WBC) Count 11.46 10x3/uL (4.8-10.8)
[2025-02-26 06:34] LABS: ALT (SGPT) 16 U/L (Less than 45); AST (SGOT) 20 U/L (11-34); Albumin 2.2 g/dL (3.1-4.5); Alkaline Phosphatase 79 U/L (40-110); Anion Gap 25 mmol/L (10-20); BUN (Urea Nitrogen) 54 mg/dL (8.4-25.7); Bilirubin, Direct 0.2 mg/dL (0.1-0.3); Bilirubin, Total 0.3 mg/dL (0.3-1.2); Calc. Creatinine Clearance 38 mL/min (70-130); Calcium 8.3 mg/dL (7.8-10.44); Carbon Dioxide 20 mmol/L (23-31); Chloride 106 mmol/L (98-107); Glucose 179 mg/dL (83-110); Magnesium 2.1 mg/dL (1.6-2.6); Potassium 3.8 mmol/L (3.5-5.1); Sodium 147 mmol/L (136-145)
[2025-02-26 06:54] LABS: Vancomycin, Random 41.9 ug/mL (See Comment)
[2025-02-26 07:28] LABS: Actual Bicarbonate (HCO3a) 19.9 mEq/L (22-28); Base Excess (BEa) -3.4 mEq/L (-2.0 to +3.0); CO2 Tension 30.2 mmHg (35.0-45.0); Calcium, Ionized (arterial) 1.10 mmol/L (1.12-1.30); Hematocrit-ABG 33 % (42.0-52.0); Hemoglobin (Hb) 11.1 g/dL (14.0-18.0); O2 Tension (PaO2), arterial 103.5 mmHg (> 60.0); Potassium - ABG Lab 3.06 mmol/L (3.70-5.30); pH, Arterial 7.437 (7.35-7.45)
[2025-02-26 07:29] LABS: ALV-art Gradient 143.950 mmHg (0-20); Puncture Site Right Radial artery
[2025-02-26] MEDS: Pantoprazole 40 MG VIAL IVP SCH (08:58)
[2025-02-26] MEDS: Dexamethasone 10 MG/ML VIAL SLOW IVP SCH (08:58)
[2025-02-26] MEDS: Enoxaparin 40 MG (0.4 mL) SYRINGE SC SCH (09:00)
[2025-02-27 04:42] LABS: #Basophils Less than 0.03 10x3/uL (0.0-0.2); #Eosinophils Less than 0.03 10x3/uL (0.0-0.7); #Monocytes 0.63 10x3/uL (0.11-0.59); #Neutrophils 12.33 10x3/uL (1.40-6.50); %Basophils 0.1 % (0.0-1.0); %Eosinophils 0.0 % (0.0-10.0); %Lymphocytes 4.8 % (21.0-51.0); %Monocytes 4.6 % (0.0-10.0); %Neutrophils 89.6 % (42.0-75.0); Hematocrit 31.7 % (42.0-52.0); Hemoglobin 10.3 g/dL (14.0-18.0); Mean Corpuscular Hemoglobin 32.2 pg (27.0-31.0); Mean Corpuscular Volume 99.1 fL (78.0-98.0); Platelet Count 208 10x3/uL (130-400); Red Blood Cell (RBC) Count 3.20 mill/uL (4.70-6.10); White Blood Cell (WBC) Count 13.77 10x3/uL (4.8-10.8)
[2025-02-27 06:00] LABS: Anion Gap 21 mmol/L (10-20); BUN (Urea Nitrogen) 58 mg/dL (8.4-25.7); Calc. Creatinine Clearance 39 mL/min (70-130); Calcium 8.0 mg/dL (7.8-10.44); Carbon Dioxide 19 mmol/L (23-31); Chloride 105 mmol/L (98-107); Glucose 191 mg/dL (83-110); Magnesium 1.9 mg/dL (1.6-2.6); Potassium 3.3 mmol/L (3.5-5.1); Sodium 142 mmol/L (136-145); Vancomycin, Random 41.7 ug/mL (See Comment)
[2025-02-27] MEDS: Magnesium 2 GM/50 ML(in water) 2 GM in Premix 1 BAG IVPB SCH (08:37)
[2025-02-27] MEDS: Potassium Chloride 20 MEQ in Premix 1 BAG IVPB SCH (08:38)
[2025-02-28 05:56] LABS: #Basophils 0.03 10x3/uL (0.0-0.2); #Eosinophils Less than 0.03 10x3/uL (0.0-0.7); #Monocytes 0.51 10x3/uL (0.11-0.59); #Neutrophils 10.92 10x3/uL (1.40-6.50); %Basophils 0.3 % (0.0-1.0); %Eosinophils 0.0 % (0.0-10.0); %Lymphocytes 3.8 % (21.0-51.0); %Monocytes 4.3 % (0.0-10.0); %Neutrophils 91.2 % (42.0-75.0); Hematocrit 31.8 % (42.0-52.0); Hemoglobin 9.9 g/dL (14.0-18.0); Mean Corpuscular Hemoglobin 31.6 pg (27.0-31.0); Mean Corpuscular Volume 101.6 fL (78.0-98.0); Platelet Count 216 10x3/uL (130-400); Red Blood Cell (RBC) Count 3.13 mill/uL (4.70-6.10); White Blood Cell (WBC) Count 11.96 10x3/uL (4.8-10.8)
[2025-02-28 06:18] LABS: Anion Gap 17 mmol/L (10-20); BUN (Urea Nitrogen) 49 mg/dL (8.4-25.7); Calc. Creatinine Clearance 53 mL/min (70-130); Calcium 8.2 mg/dL (7.8-10.44); Carbon Dioxide 22 mmol/L (23-31); Chloride 106 mmol/L (98-107); Glucose 190 mg/dL (83-110); Magnesium 2.4 mg/dL (1.6-2.6); Potassium 3.4 mmol/L (3.5-5.1); Sodium 142 mmol/L (136-145)
[2025-02-28] MEDS: Potassium Chloride 20 MEQ in Premix 1 BAG IVPB SCH ×2 (07:02→18:45)
[2025-02-28] MEDS: Diltiazem HCl/D5W 125 MG in Premix 1 BAG IVPB SCH (09:40)
[2025-02-28 17:44] LABS: Potassium 3.5 mmol/L (3.5-5.1)
[2025-03-01 04:52] LABS: #Basophils Less than 0.03 10x3/uL (0.0-0.2); #Eosinophils Less than 0.03 10x3/uL (0.0-0.7); #Monocytes 0.21 10x3/uL (0.11-0.59); #Neutrophils 7.00 10x3/uL (1.40-6.50); %Basophils 0.1 % (0.0-1.0); %Eosinophils 0.0 % (0.0-10.0); %Lymphocytes 6.4 % (21.0-51.0); %Monocytes 2.7 % (0.0-10.0); %Neutrophils 90.2 % (42.0-75.0); Hematocrit 26.3 % (42.0-52.0); Hemoglobin 8.6 g/dL (14.0-18.0); Mean Corpuscular Hemoglobin 32.6 pg (27.0-31.0); Mean Corpuscular Volume 99.6 fL (78.0-98.0); Platelet Count 165 10x3/uL (130-400); Red Blood Cell (RBC) Count 2.64 mill/uL (4.70-6.10); White Blood Cell (WBC) Count 7.77 10x3/uL (4.8-10.8)
[2025-03-01 05:16] LABS: Anion Gap 9 mmol/L (10-20); BUN (Urea Nitrogen) 48 mg/dL (8.4-25.7); Calc. Creatinine Clearance 68 mL/min (70-130); Calcium 7.8 mg/dL (7.8-10.44); Carbon Dioxide 21 mmol/L (23-31); Chloride 112 mmol/L (98-107); Glucose 150 mg/dL (83-110); Potassium 3.8 mmol/L (3.5-5.1); Sodium 138 mmol/L (136-145)
[2025-03-01 10:40] VITALS: BP 103/63
[2025-03-01 15:38] VITALS: BMI 22.6
[2025-03-02 03:37] LABS: #Basophils Less than 0.03 10x3/uL (0.0-0.2); #Eosinophils Less than 0.03 10x3/uL (0.0-0.7); #Monocytes 0.13 10x3/uL (0.11-0.59); #Neutrophils 5.61 10x3/uL (1.40-6.50); %Basophils 0.2 % (0.0-1.0); %Eosinophils 0.0 % (0.0-10.0); %Lymphocytes 5.7 % (21.0-51.0); %Monocytes 2.1 % (0.0-10.0); %Neutrophils 91.5 % (42.0-75.0); Hematocrit 25.3 % (42.0-52.0); Hemoglobin 8.1 g/dL (14.0-18.0); Mean Corpuscular Hemoglobin 31.9 pg (27.0-31.0); Mean Corpuscular Volume 99.6 fL (78.0-98.0); Platelet Count 160 10x3/uL (130-400); Red Blood Cell (RBC) Count 2.54 mill/uL (4.70-6.10); White Blood Cell (WBC) Count 6.13 10x3/uL (4.8-10.8)
[2025-03-02 03:54] LABS: Anion Gap 11 mmol/L (10-20); BUN (Urea Nitrogen) 40 mg/dL (8.4-25.7); Calc. Creatinine Clearance 93 mL/min (70-130); Calcium 7.8 mg/dL (7.8-10.44); Carbon Dioxide 21 mmol/L (23-31); Chloride 106 mmol/L (98-107); Glucose 272 mg/dL (83-110); Potassium 3.7 mmol/L (3.5-5.1); Sodium 134 mmol/L (136-145)
[2025-03-02 06:59] VITALS: BMI 22.4
[2025-03-02 07:16] LABS: Actual Bicarbonate (HCO3a) 20.8 mEq/L (22-28); Base Excess (BEa) -2.4 mEq/L (-2.0 to +3.0); CO2 Tension 29.9 mmHg (35.0-45.0); Calcium, Ionized (arterial) 1.17 mmol/L (1.12-1.30); Hematocrit-ABG 26 % (42.0-52.0); Hemoglobin (Hb) 8.9 g/dL (14.0-18.0); O2 Tension (PaO2), arterial 88.4 mmHg (> 60.0); Potassium - ABG Lab 3.54 mmol/L (3.70-5.30); pH, Arterial 7.461 (7.35-7.45)
[2025-03-02 07:26] LABS: Puncture Site Right Radial artery
[2025-03-02 07:27] LABS: ALV-art Gradient 159.425 mmHg (0-20)
[2025-03-02] MEDS: Vancomycin (BATCH) 1.25 GM Premix BAG IVPB SCH (19:36)
[2025-03-03 04:21] LABS: #Basophils Less than 0.03 10x3/uL (0.0-0.2); #Eosinophils Less than 0.03 10x3/uL (0.0-0.7); #Monocytes 0.47 10x3/uL (0.11-0.59); #Neutrophils 10.33 10x3/uL (1.40-6.50); %Basophils 0.1 % (0.0-1.0); %Eosinophils 0.0 % (0.0-10.0); %Lymphocytes 5.0 % (21.0-51.0); %Monocytes 4.1 % (0.0-10.0); %Neutrophils 90.1 % (42.0-75.0); Hematocrit 27.4 % (42.0-52.0); Hemoglobin 8.8 g/dL (14.0-18.0); Mean Corpuscular Hemoglobin 32.4 pg (27.0-31.0); Mean Corpuscular Volume 100.7 fL (78.0-98.0); Platelet Count 220 10x3/uL (130-400); Red Blood Cell (RBC) Count 2.72 mill/uL (4.70-6.10); White Blood Cell (WBC) Count 11.46 10x3/uL (4.8-10.8)
[2025-03-03 04:47] LABS: Anion Gap 13 mmol/L (10-20); BUN (Urea Nitrogen) 39 mg/dL (8.4-25.7); Calc. Creatinine Clearance 81 mL/min (70-130); Calcium 7.9 mg/dL (7.8-10.44); Carbon Dioxide 21 mmol/L (23-31); Chloride 104 mmol/L (98-107); Glucose 247 mg/dL (83-110); Potassium 4.0 mmol/L (3.5-5.1); Sodium 134 mmol/L (136-145)
[2025-03-03] MEDS ORDERED: Glycopyrrolate 0.2 MG/ML 5 ML SYRINGE SLOW IVP SCH (09:30)
[2025-03-03] MEDS: Scopolamine 1 mg/72 hour Patch TD SCH (10:03)
[2025-03-03] MEDS: Glycopyrrolate 0.4 MG/ 2 ML VIAL SLOW IVP SCH (12:26)
[2025-03-03] MEDS: Ketorolac Tromethamine 30 MG (1 mL) VIAL IVP SCH (19:37)
[2025-03-05 16:41] VITALS: TEMP 98
== END 2025-03-05 18:05 | disposition hospice, inpatient (51) | DRG 870 ==
LOC: ERS 07:37 → SUATTDRO 07:37 → ERHOLD 11:18 → CCU 13:47
PROVIDERS: ADMIT Family Medicine; ATTEND Student in an Organized Health Care Education/Training Program
PROC: 4A133R1 Monitoring of Arterial Saturation, Peripheral, Percutaneous Approach (ICD-10-PCS; principal; 2025-02-25)
PROC: 5A1955Z Respiratory Ventilation, Greater than 96 Consecutive Hours (ICD-10-PCS; 2025-02-25)
PROC: 3E03329 Introduction of Other Anti-infective into Peripheral Vein, Percutaneous Approach (ICD-10-PCS; 2025-02-25)
PROC: 5A09357 Assistance with Respiratory Ventilation, Less than 24 Consecutive Hours, Continuous Positive Airway Pressure (ICD-10-PCS; 2025-02-25)
PROC: 8E0ZXY6 Isolation (ICD-10-PCS; 2025-02-25)
PROC: 0T9B70Z Drainage of Bladder with Drainage Device, Via Natural or Artificial Opening (ICD-10-PCS; 2025-02-25)
PROC: 0BH17EZ Insertion of Endotracheal Airway into Trachea, Via Natural or Artificial Opening (ICD-10-PCS; 2025-02-25)
PROC: 3E0333Z Introduction of Anti-inflammatory into Peripheral Vein, Percutaneous Approach (ICD-10-PCS; 2025-02-26)
PROC: 0DH67UZ Insertion of Feeding Device into Stomach, Via Natural or Artificial Opening (ICD-10-PCS; 2025-02-27)
PROC: 3E0G76Z Introduction of Nutritional Substance into Upper GI, Via Natural or Artificial Opening (ICD-10-PCS; 2025-02-27)
PROC: 5A0945A Assistance with Respiratory Ventilation, 24-96 Consecutive Hours, High Flow/Velocity Cannula (ICD-10-PCS; 2025-03-04)
DX: A41.59 Other Gram-negative sepsis (principal); L89.614 Pressure ulcer of right heel, stage 4; G93.41 Metabolic encephalopathy; I21.A1 Myocardial infarction type 2; J12.82 Pneumonia due to coronavirus disease 2019; U07.1 COVID-19; J96.01 Acute respiratory failure with hypoxia; J69.0 Pneumonitis due to inhalation of food and vomit; Z66 Do not resuscitate; Z51.5 Encounter for palliative care; N39.0 Urinary tract infection, site not specified; I50.32 Chronic diastolic (congestive) heart failure; E87.0 Hyperosmolality and hypernatremia; N17.9 Acute kidney failure, unspecified; R65.20 Severe sepsis without septic shock; E11.9 Type 2 diabetes mellitus without complications; F03.90 Unspecified dementia, unspecified severity, without behavioral disturbance, psychotic disturbance, mood disturbance, and anxiety; N40.0 Benign prostatic hyperplasia without lower urinary tract symptoms; E86.0 Dehydration; R74.01 Elevation of levels of liver transaminase levels; E78.00 Pure hypercholesterolemia, unspecified; I11.0 Hypertensive heart disease with heart failure; B96.1 Klebsiella pneumoniae [K. pneumoniae] as the cause of diseases classified elsewhere; Z96.652 Presence of left artificial knee joint; A41.89 Other specified sepsis; G14 Postpolio syndrome; D64.9 Anemia, unspecified; I25.10 Atherosclerotic heart disease of native coronary artery without angina pectoris; M62.50 Muscle wasting and atrophy, not elsewhere classified, unspecified site; Z98.890 Other specified postprocedural states; Z90.49 Acquired absence of other specified parts of digestive tract; Z86.16 Personal history of COVID-19; Z95.1 Presence of aortocoronary bypass graft
CPT/HCPCS: 36415; 36416; 36600; 70450; 71045; 80048; 80053; 80076; 80202; 81001; 82805; 83036; 83605; 83735; 84443; 84484; 85025; 85060; 87040; 87076; 87077; 87086; 87149; 87186; 87428; 93005; 93010; 93306; 94002; 94003; 94640; 94760; 96374; 96375; 97139; A4217; J0692; J0696; J1100; J1650; J1815; J1885; J2060; J2270; J2470; J3010; J3373; J3375; J3475; J3480; J7050; J7120; J7620

== ENCOUNTER 2025-03-05 18:27 | Inpatient (IN) | payer OTHER ==
[2025-03-05 19:10] VITALS: BMI 22.4
[2025-03-06] MEDS: Scopolamine 1 mg/72 hour Patch TOP SCH (09:05)
[2025-03-06 19:51] VITALS: BP 131/70; TEMP 96.9
== END 2025-03-07 02:20 | disposition expired | DRG 951 ==
LOC: CCU 18:27 → T4-A 03-06 06:38
PROVIDERS: ADMIT Family Medicine; ATTEND Family Medicine
DX: Z51.5 Encounter for palliative care (principal); U07.1 COVID-19; I21.A1 Myocardial infarction type 2; J12.82 Pneumonia due to coronavirus disease 2019; J96.01 Acute respiratory failure with hypoxia; E87.0 Hyperosmolality and hypernatremia; E87.20 Acidosis, unspecified; E11.9 Type 2 diabetes mellitus without complications; E78.00 Pure hypercholesterolemia, unspecified; I10 Essential (primary) hypertension; N40.0 Benign prostatic hyperplasia without lower urinary tract symptoms; F03.90 Unspecified dementia, unspecified severity, without behavioral disturbance, psychotic disturbance, mood disturbance, and anxiety; Z98.890 Other specified postprocedural states
CPT/HCPCS: J2060; J2270